=== PATIENT | female | born 1955 | race Caucasian/White ===

== ENCOUNTER 2017-11-15 08:48 | Emergency (ER) | payer SELFPAY ==
[~2017-11-15] VITALS: Ht 162.6 cm; Wt 104.0 kg
[~2017-11-15 08:48] MED LIST: ASPI81 PO; METO25 PO
[2017-11-15 08:51] VITALS: BP 194/93; PULSE 71; RESP 14; TEMP 99.1; O2SAT 98
[2017-11-15] MEDS ORDERED: ASPI-516 CHEW (09:01)
[2017-11-15 09:13] VITALS: BP 188/90; PULSE 67; RESP 18; O2SAT 97
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
--- NOTE | 2017-11-15 11:20 | RADRPT ---
EXAM DATE/TIME: 11/15/2017 10:49 [place] COMPARISON: CT BRAIN W/O CONTRAST, August 04, 2012, 9:15. INDICATIONS : Dizziness for three days. Syncope last night. RADIATION DOSE: 36.85 CTDIvol (mGy) MEDICAL HISTORY : Hypertension. Cardiovascular disease SURGICAL HISTORY : Appendectomy. Cholecystectomy.Tubal ligation. ENCOUNTER: Initial ACUITY: 1 day PAIN SCALE: 0/10 LOCATION: cranial TECHNIQUE: Multiple contiguous axial images were obtained of the head. Using automated exposure control and adj ustment of the mA and/or kV according to patient size, radiation dose was kept as low as reasonably a chievable to obtain optimal diagnostic quality images. DICOM format image data is available electro nically for review and comparison. FINDINGS: There is 8 linear focal area of increased density left posterior parietal region. It could be hemorr dinesh or small thrombosed vein. There is arachnoid cyst medial right temporal lobe. Ventricle size is appropriate. Posterior fossa is normal. CONCLUSION: Abnormal head CT, stable from the study of 08/04/12. MRI electively could be used fo r further evaluation. Jose Sanchez MD FACR on November 15, 2017 at 11:15 Board Certified Radiologist. This report was verified electronically.
[2017-11-15] MEDS ORDERED: AMOX500T PO (14:33)
[2017-11-15] MEDS ORDERED: MECL-62 PO (14:33)
--- NOTE | 2017-11-16 14:50 | EKG ---
Date Performed: 11/15/2017 Time Performed: 09:48:11 PTAGE: 62 years EKG: Sinus rhythm LEFT ANTERIOR FASCICULAR BLOCK ABNORMAL ECG PREVIOUS TRACING : 02/03/2015 02.07 Since the prior tracing, there has been no significant verdin DOCTOR: Timur Gomez Interpretating Date/Time 11/16/2017 14:48:47
== END 2017-11-15 14:58 | disposition home or self-care (01) ==
LOC: NEPC 08:48
DX: H66.92 Otitis media, unspecified, left ear (principal); H81.392 Other peripheral vertigo, left ear; R94.31 Abnormal electrocardiogram [ECG] [EKG]; I10 Essential (primary) hypertension; I48.91 Unspecified atrial fibrillation; Z86.718 Personal history of other venous thrombosis and embolism; Z79.82 Long term (current) use of aspirin
CPT/HCPCS: 70450; 93005; 99284